=== PATIENT | male | born 1995 | race Caucasian/White ===

== ENCOUNTER 2018-04-21 07:49 | Emergency (ER) | payer MEDICAID ==
[~2018-04-21] VITALS: Ht 182.9 cm; Wt 116.9 kg
[2018-04-21 07:53] VITALS: BP 150/97
[2018-04-21] MEDS ORDERED: DEXAMETHASONE 4 MG TABLET ONE (08:15)
--- NOTE | 2018-04-21 08:26 | NUR ---
Patient given discharge instructions and they have confirmed that they understand the instructions. Patient ambulatory with steady gait.
[2018-04-21] MEDS ORDERED: DEXAMETHASONE 4 MG TABLET PO ONE (08:30)
== END 2018-04-21 08:27 | disposition home or self-care (01) ==
LOC: ED 08:22
DX: H66.91 Otitis media, unspecified, right ear (principal); J02.9 Acute pharyngitis, unspecified
CPT/HCPCS: 99283

== ENCOUNTER 2020-02-20 07:53 | Emergency (ER) | payer MEDICAID ==
[~2020-02-20] VITALS: Ht 182.9 cm; Wt 111.0 kg
[2020-02-20 07:57] VITALS: BP 145/89
--- NOTE | 2020-02-20 08:16 | NUR ---
Patient assessed, lump to right eyebrow. No other complains.
[2020-02-20] MEDS ORDERED: DIPH,PERTUSS(ACELL),TET VAC/PF 0.5 ML IM-VACC ONE ×2 (08:30→08:39)
--- NOTE | 2020-02-20 08:36 | NUR ---
veified on [employer] [facility] last Tdap 10/30/2007.
== END 2020-02-20 09:12 | disposition home or self-care (01) ==
LOC: ED 08:04
DX: L03.211 Cellulitis of face (principal)
CPT/HCPCS: 90471; 90715; 99283

== ENCOUNTER 2020-05-12 16:47 | Emergency (ER) | payer MEDICAID ==
[~2020-05-12] VITALS: Ht 182.9 cm; Wt 111.4 kg
[2020-05-12 16:49] VITALS: BP 126/78
[2020-05-12] MEDS ORDERED: LIDOCAINE-MPF 1%, 5ML ONE (17:20)
--- NOTE | 2020-05-12 17:29 | NUR ---
THE PT IS A 24M WITH COMPLAINTS OF A DIME SIZE ABSCESS TO THE RIGHT SIDE OF HIS FOREHEAD. HE HAS HAD AN ABSCESS THERE BEFORE WHICH DEVELOPED INTO CELLULITIS OF THE FACE. PROVIDER AT BEDSIDE FOR EVAL AND POC. CALL LIGHT WITHIN REACH.
[2020-05-12] MEDS ORDERED: LIDOCAINE-MPF 1%, 5ML INFIL ONE (17:30)
[2020-05-12] MEDS ORDERED: NEOSPORIN OINT. PKT 1 PACKET ONE (17:57)
--- NOTE | 2020-05-12 18:06 | NUR ---
Patient/Caregiver given discharge instructions and they have confirmed that they understand the instructions. Patient ambulatory with steady gait.
== END 2020-05-12 18:17 | disposition home or self-care (01) ==
LOC: ED 18:01
DX: L02.01 Cutaneous abscess of face (principal); R51.9 Headache, unspecified
CPT/HCPCS: 10060